=== PATIENT | female | born 1945 | race Caucasian/White ===

== ENCOUNTER 2018-01-20 13:34 | Emergency (ER) | payer MEDICARE, MEDICAID ==
[~2018-01-20] VITALS: Ht 160 cm; Wt 53.0 kg
[2018-01-20 13:48] VITALS: BP 153/72; PULSE 89; RESP 16; TEMP 98; O2SAT 99
[2018-01-20] MEDS ORDERED: DICY10CA12 PO (14:10)
[2018-01-20] MEDS ORDERED: ATOR40TA16 PO (14:10)
[2018-01-20] MEDS ORDERED: METF500T PO (14:10)
[2018-01-20] MEDS ORDERED: LEVO100T5 PO (14:10)
[2018-01-20] MEDS ORDERED: OCUVTAB PO (14:10)
[2018-01-20] MEDS ORDERED: OXYB5TAB PO (14:10)
[2018-01-20] MEDS ORDERED: DULO1CAP3 PO (14:10)
[2018-01-20] MEDS ORDERED: LISI-515 PO (14:10)
[2018-01-20] MEDS ORDERED: ISOS60TA PO (14:10)
--- NOTE | 2018-01-20 14:26 | PD ---
HPI Chief Complaint: Fall Time Seen by Provider: 14:08 Travel History International Travel<30 days: No Contact w/Intl Traveler<30days: No Traveled to known affect area: No History of Present Illness HPI 72-year-old female with PMH of HTN, HLD, T2 DM presents to the ED for evaluation after mechanical fall. Patient states that she "just fell backwards. " She denies any preceding dizziness, headache, chest pain, palpitations, weakness in the lower extremities. Daughter witnessed the fall and states that she fell onto a wooden stool then hit her head against the window and came to rest on a piece of decorative ceramics. She did not lose consciousness. On presentation she complains of 10/10 right-sided anterolateral rib pain and dull , generalized headache. She denies shortness breath, palpitations, limitations to range of motion of the extremities. She has been ambulatory since the accident. No treatment attempt at home before presentation. PFSH Past Medical History Hx Anticoagulant Therapy: No Depression: Yes Cardiovascular Problems: Yes (htn on meds) High Cholesterol: Yes Coronary Artery Disease: Yes Diabetes: Yes (type 2 ) Patient Takes Glucophage: Yes Hypertension: Yes Influenza Vaccination: Yes ?: Not Past Surgical History Gynecologic Surgery: Yes (BILAT MASTECTOMY) Hysterectomy: Yes Social History Alcohol Use: No Tobacco Use: No Substance Use: No Allergies-Medications (Allergen,Severity, Reaction): Coded Allergies: No Known Allergies (Unverified , 01/20/18) Reported Meds & Prescriptions Reported Meds & Active Scripts Active Reported Ocuvite (Multiple Vitamins W/ Minerals) 1 Tab 1 Tab PO DAILY Atorvastatin (Atorvastatin Calcium) 40 Mg Tab 40 Mg PO HS Isosorbide Mononitrate ER (Isosorbide Mononitrate) 60 Mg Tab 60 Mg PO DAILY Metformin (Metformin HCl) 500 Mg Tab 500 Mg PO BIDPC Duloxetine DR (Duloxetine HCl) 60 Mg Capdr 60 Mg PO DAILY Oxybutynin ER 24 HR (Oxybutynin Chloride) 5 Mg Tab 5 Mg PO DAILY Lisinopril 20 Mg Tab 20 Mg PO DAILY Dicyclomine (Dicyclomine HCl) 10 Mg Cap 10 Mg PO QID Levothyroxine (Levothyroxine Sodium) 100 Mcg Tab 100 Mcg PO DAILY Review of Systems Except as stated in HPI: all other systems reviewed are Neg Physical Exam Narrative GENERAL: Well-nourished, well-developed white female in no acute distress. Sitting on the stretcher at 90. SKIN: Warm and dry. Thorough evaluation reveals no edema, ecchymosis, abrasion , or laceration of the skin. HEAD: Normocephalic. Atraumatic. No raccoon eyes or avina sign. Positive tenderness to palpation of the right posterior skull. No bony step-offs. No malocclusion of the teeth. EYES: No scleral icterus. No injection or drainage. PERRLA. EOMI. ENT: Pearly magana tympanic membrane is bilaterally. Nasal mucosa is moist. Oropharynx without erythema, edema or exudate. NECK: Supple, trachea midline. No JVD or lymphadenopathy. No midline tenderness to palpation. Patient retains full, active range of motion of the neck. CARDIOVASCULAR: Regular rate and rhythm without murmurs, gallops, or rubs. 2+ DP and radial pulses bilaterally. CHEST: Tender to palpation of the right anterolateral ribs without deformity or crepitus. No retractions. RESPIRATORY: Breath sounds clear and equal bilaterally. No accessory muscle use. GASTROINTESTINAL: Abdomen soft, non-tender, nondistended. + Bowel sounds MUSCULOSKELETAL: No cyanosis, or edema. No tenderness to palpation or limitations to range of motion of the joints of the upper and lower extremities bilaterally. NEUROLOGICAL: Awake and alert. Cranial nerves II through XII intact. Motor and sensory grossly within normal limits. 5/5 muscle strength in all muscle groups. Normal speech. BACK: Nontender without obvious deformity. No CVA tenderness. No midline tenderness. Data Data Last Documented VS Vital Signs Date Time Temp Pulse Resp B/P (MAP) Pulse Ox O2 Delivery O2 Flow Rate FiO2 01/20/18 17:09 86 18 148/70 (96) 99 01/20/18 13:[address] Brain W/O Iv Contrast(Rout) (01/20/18 14:24) Ct Cerv Spine W/O Contrast (01/20/18 14:24) Chest, Single Ap (01/20/18 ) Tramadol (Ultram) (01/20/18 14:30) Blood Glucose (01/20/18 14:26) Ed Discharge Order (01/20/18 17:14) MDM Medical Decision Making Medical Screen Exam Complete: Yes Emergency Medical Condition: Yes Differential Diagnosis Fall from standing versus contusion versus skull fracture versus rib fracture versus other Narrative Course 72-year-old female with PMH of HTN, HLD, T2 DM presents to the ED for evaluation after mechanical fall. Patient states that she "just fell backwards. " She denies any preceding dizziness, headache, chest pain, palpitations, weakness in the lower extremities. Daughter witnessed the fall and states that she fell onto a wooden stool then hit her head against the window and came to rest on a piece of decorative ceramics. She did not lose consciousness. On presentation she complains of 10/10 right-sided anterolateral rib pain and dull , generalized headache. Vitals reviewed. On exam there are no focal neuro deficits. On exam the patient has tenderness to palpation over the right anterior lateral chest. She was administered 50 mg tramadol. No acute findings on the head CT, cervical spinal CT or chest x-ray. This is musculoskeletal pain after fall. Patient is provided a short course of anti- inflammatories and muscle relaxants, instructed to return to normal, gentle activity as tolerated, follow up with primary care provider. She is stable and discharged home. Diagnosis Primary Impression: Fall from standing Qualified Codes: W19.XXXA - Unspecified fall, initial encounter Additional Impression: Musculoskeletal pain Referrals: Primary Care Physician Additional Instructions: Rest, hydrate. Resume normal , gentle activities as tolerated. No strenuous physical activities for the next few days Take [id number] pain medications such as ibuprofen as needed for headache and body aches. Applying ice or heat to areas with sore muscles may help to improve your pains. Do not apply ice/ heat for longer than 20 m/h. Follow-up with your primary care provider next week. Return to the ED for any urgent or emergent medical condition. Disposition: 01 DISCHARGE HOME Condition: Stable Lulu Uribe Jan 20, 2018 14:26
[2018-01-20] MEDS ORDERED: traMADol HCL 50 MG TAB PO ONE (14:30)
--- NOTE | 2018-01-20 14:51 | RADRPT ---
EXAM DATE/TIME: 01/20/2018 14:35 [facility] COMPARISON: No previous studies available for comparison. INDICATIONS : Chest pain; fall today. MEDICAL HISTORY : Hypertension. Diabetes mellitus type II. Coronary artery disease. SURGICAL HISTORY : None. ENCOUNTER: Initial ACUITY: 1 day PAIN SCORE: 6/10 LOCATION: Bilateral chest FINDINGS: A single view of the chest demonstrates the lungs to be symmetrically aerated without evidence of mas s, infiltrate or effusion. The cardiomediastinal contours are unremarkable. Degenerative changes are noted throughout the thoracic spine. An acromioclavicular separation on the right is noted of indete rminate age. CONCLUSION: 1. No acute focal infiltrate. 2. Acromioclavicular separation on the right of indeterminate age. Everett Gilbert MD on January 20, 2018 at 14:47 Board Certified Radiologist. This report was verified electronically.
--- NOTE | 2018-01-20 16:40 | RADRPT ---
EXAM DATE/TIME: 01/20/2018 16:23 [facility] COMPARISON: No previous studies available for comparison. INDICATIONS : Trauma. Fall. RADIATION DOSE: 64.28 CTDIvol (mGy) MEDICAL HISTORY : Hypertension. Diabetes mellitus type 2. SURGICAL HISTORY : Mastectomy, bilateral. Hysterectomy. ENCOUNTER: Initial ACUITY: 1 day PAIN SCALE: 5/10 LOCATION: cranial TECHNIQUE: Multiple contiguous axial images were obtained of the head. Using automated exposure control and adj ustment of the mA and/or kV according to patient size, radiation dose was kept as low as reasonably a chievable to obtain optimal diagnostic quality images. DICOM format image data is available electro nically for review and comparison. FINDINGS: CEREBRUM: Mild central cerebral atrophy is noted. Minimal periventricular and subcortical white matter small ve ssel ischemic changes are noted. No evidence of midline shift, mass lesion, hemorrhage or acute infar ction. No extra-axial fluid collections are seen. POSTERIOR FOSSA: The brainstem is intact. There is an old infarct involving left cerebellar hemisphere. The 4th ventr icle is midline. The cerebellopontine angle is unremarkable. EXTRACRANIAL: The visualized portion of the orbits is intact. SKULL: The calvaria is intact. No evidence of skull fracture. CONCLUSION: 1. Minimal periventricular and subcortical white matter small vessel ischemic changes bilaterally. 2. Mild cerebral atrophy. 3. 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 4. No acute infarct or acute hemorrhage, midline shift or extra-axial fluid collections. Everett Gilbert MD on January 20, 2018 at 16:36 Board Certified Radiologist. This report was verified electronically.
--- NOTE | 2018-01-20 16:51 | RADRPT ---
EXAM DATE/TIME: 01/20/2018 16:23 [facility] COMPARISON: No previous studies available for comparison. INDICATIONS : Trauma. Fall. RADIATION DOSE: 25.44 CTDIvol (mGy) MEDICAL HISTORY : Hypertension. Diabetes mellitus type 2. SURGICAL HISTORY : Hysterectomy. ENCOUNTER: Initial ACUITY: 1 day PAIN SCALE: 6/10 LOCATION: neck TECHNIQUE: Volumetric scanning of the cervical spine was performed. Multiplanar reconstructions in the sagittal, coronal and oblique axial planes were performed. Using automated exposure control and adjustment o f the mA and/or kV according to patient size, radiation dose was kept as low as reasonably achievable to obtain optimal diagnostic quality images. DICOM format image data is available electronically f or review and comparison. FINDINGS: No acute fracture or prevertebral soft tissue swelling is noted. There is grade I anterolisthesis of C5 in relation to C4 and C7 in relation to T1. Diffuse cervical spondylosis is noted and is most sign ificant at C5-6 and C6-7. C2-C3: The bony spinal canal is normal in size. No evidence of disc bulge or herniation. The neural forami na are bilaterally patent. C3-C4: The bony spinal canal is normal in size. No evidence of disc bulge or herniation. Mild bilateral for aminal narrowing is noted. C4-C5: The bony spinal canal is normal in size. No evidence of disc bulge or herniation. Mild bilateral for aminal narrowing is noted. C5-C6: The bony spinal canal is normal in size. No evidence of disc bulge or herniation. Moderate right marquez ral foraminal narrowing and mild left neural foraminal narrowing is noted. C6-C7: The bony spinal canal is normal in size. No evidence of disc bulge or herniation. Moderate right marquez ral foraminal narrowing and mild left neural foraminal narrowing is noted. C7-T1: The bony spinal canal is normal in size. No evidence of disc bulge or herniation. The neural forami na are bilaterally patent. CONCLUSION: 1. No acute fracture or prevertebral soft tissue swelling. 2. Moderate right neural foraminal narrowing at C5-6 and C6-7 as well as mild left neural foraminal n arrowing at these levels. 3. Mild bilateral foraminal narrowing at C3-4 and C4-5. 4. Diffuse cervical spondylosis which is most significant at C5-6 and C6-7. 5. Grade I anterolisthesis of C5 in relation to C4 and C7 in relation to T1. Everett Gilbert MD on January 20, 2018 at 16:43 Board Certified Radiologist. This report was verified electronically.
[2018-01-20 17:09] VITALS: BP 148/70
== END 2018-01-20 17:18 | disposition home or self-care (01) ==
LOC: PHEFT 13:34
DX: M79.1 Myalgia (principal); R51 Headache; I10 Essential (primary) hypertension; E11.9 Type 2 diabetes mellitus without complications; W01.198A Fall on same level from slipping, tripping and stumbling with subsequent striking against other object, initial encounter; Y92.009 Unspecified place in unspecified non-institutional (private) residence as the place of occurrence of the external cause
CPT/HCPCS: 70450; 71045; 72125; 99285